=== PATIENT | male | born 1935 | race Caucasian/White ===

== ENCOUNTER 2021-06-08 16:06 | Emergency (ER) | payer MEDICARE ==
[2021-06-08 16:41] LABS: Hemoglobin 13.7 g/dL (14.0-18.0); Mean Corpuscular HGB CONC 31.6 g/dL (32.0-36.0); Mean Corpuscular Hemoglobin 30.8 pg (27.0-31.0); Mean Corpuscular Volume 97.4 fL (78.0-98.0); Mean Platelet Volume 11.3 fL (7.4-10.4); Platelet Count 180 thou/uL (130-400); Red Blood Cell (RBC) Count 4.46 mill/uL (4.70-6.10); White Blood Cell (WBC) Count 7.2 thou/uL (4.8-10.8)
[2021-06-08 16:43] LABS: Prothrombin Time 12.7 sec (12.0-14.7)
[2021-06-08 16:51] LABS: ALT (SGPT) 12 U/L (8-55); AST (SGOT) 14 U/L (5-34); Albumin 3.6 g/dL (3.4-4.8); Alkaline Phosphatase 57 U/L (40-110); Anion Gap 12 mmol/L (10-20); BUN (Urea Nitrogen) 33 mg/dL (8.4-25.7); Bilirubin, Total 0.3 mg/dL (0.2-1.2); Calc. Creatinine Clearance 0 mL/min (70-130); Calcium 9.2 mg/dL (7.8-10.44); Carbon Dioxide 25 mmol/L (23-31); Chloride 107 mmol/L (98-107); Globulin 3.2 g/dL (2.4-3.5); Glucose 138 mg/dL (83-110); Potassium 4.4 mmol/L (3.5-5.1); Protein, Total 6.8 g/dL (5.8-8.1); Sodium 140 mmol/L (136-145)
[2021-06-08 16:56] LABS: Lymphocytes 23 % (21-51); MDiff Complete? YES; Monocytes 16 % (0-10); Neutrophil 59 % (42-75); Platelet Morphology Comment Appears Adequate; Reactive Lymphocytes 2 % (0-10)
[2021-06-08 18:40] LABS: Bilirubin Negative (Negative); Blood, Urine Negative (Negative); Clarity Clear (Clear); Glucose, Urine (Dipstick) Negative (Negative); Ketone, Urine Negative (Negative); Leukocyte Negative (Negative); Nitrite Negative (Negative); Protein, Urine (Dipstick) Negative (Neg-Trace); Urobilinogen 0.2 mg/dL (Less than 2); pH, Urine 5.5 (5.0-9.0)
[2021-06-08 18:42] LABS: Specific Gravity, Urine 1.028 (1.002-1.036)
[2021-06-08 20:46] LABS: SARS-CoV-2 NAA Rapid Test Not Detected (NotDetected)
== END 2021-06-08 21:25 | disposition short-term general hospital (02) ==
LOC: NAV ERS 16:06
DX: G45.9 Transient cerebral ischemic attack, unspecified (principal); M10.9 Gout, unspecified; E78.00 Pure hypercholesterolemia, unspecified; M19.90 Unspecified osteoarthritis, unspecified site; E11.9 Type 2 diabetes mellitus without complications; Z79.84 Long term (current) use of oral hypoglycemic drugs; Z79.899 Other long term (current) drug therapy
CPT/HCPCS: 70450; 71045; 80053; 81003; 85025; 85610; 85730; 93005; U0002

== ENCOUNTER 2022-11-15 09:27 | Emergency (ER) | payer OTHER, MEDICARE ==
[2022-11-15 10:14] LABS: Bilirubin Negative (Negative); Blood, Urine Small (Negative); Clarity Clear (Clear); Glucose, Urine (Dipstick) Negative (Negative); Ketone, Urine Negative (Negative); Leukocyte Large (Negative); Nitrite Negative (Negative); Protein, Urine (Dipstick) Negative (Neg-Trace); Urobilinogen 0.2 mg/dL (Less than 2); pH, Urine 6.5 (5.0-9.0)
[2022-11-15 10:18] LABS: Bacteria/HPF 2+ HPF (None Seen); Squamous Epithelial 0-3 HPF (0-3)
== END 2022-11-15 10:45 | disposition home or self-care (01) ==
LOC: NAV ERS 09:27
DX: S70.02XA Contusion of left hip, initial encounter (principal); S30.0XXA Contusion of lower back and pelvis, initial encounter; N39.0 Urinary tract infection, site not specified; I10 Essential (primary) hypertension; M10.9 Gout, unspecified; E78.00 Pure hypercholesterolemia, unspecified; M19.90 Unspecified osteoarthritis, unspecified site; W18.09XA Striking against other object with subsequent fall, initial encounter; Y93.E1 Activity, personal bathing and showering; Y92.002 Bathroom of unspecified non-institutional (private) residence as the place of occurrence of the external cause; Z79.899 Other long term (current) drug therapy
CPT/HCPCS: 72170; 81003; 81015

== ENCOUNTER 2023-05-24 14:43 | Inpatient (IN) | payer MEDICARE ==
[2023-05-24 15:21] LABS: #Basophils 0.2 thou/uL (0.0-0.2); #Lymphocytes 0.9 thou/uL (1.20-3.40); #Monocytes 1.4 thou/uL (0.11-0.59); #Neutrophils 4.6 thou/uL (1.40-6.50); %Basophils 2.9 % (0.0-1.0); %Eosinophils 0.3 % (0.0-10.0); %Monocytes 20.3 % (0.0-10.0); %Neutrophils 64.6 % (42.0-75.0); Hematocrit 41.5 % (42.0-52.0); Hemoglobin 13.6 g/dL (14.0-18.0); Mean Corpuscular HGB CONC 32.7 g/dL (32.0-36.0); Mean Corpuscular Volume 91.7 fl (78.0-98.0); Mean Platelet Volume 9.6 fL (7.4-10.4); Platelet Count 161 10x3/uL (130-400); Red Blood Cell (RBC) Count 4.53 mill/uL (4.70-6.10); White Blood Cell (WBC) Count 7.1 10x3/uL (4.8-10.8)
[2023-05-24 15:38] LABS: ALT (SGPT) 12 U/L (8-55); AST (SGOT) 20 U/L (5-34); Albumin 3.5 g/dL (3.4-4.8); Alkaline Phosphatase 61 U/L (40-110); Anion Gap 16 mmol/L (10-20); BUN (Urea Nitrogen) 28 mg/dL (8.4-25.7); Bilirubin, Total 0.4 mg/dL (0.2-1.2); Calc. Creatinine Clearance 0 mL/min (70-130); Calcium 9.4 mg/dL (7.8-10.44); Carbon Dioxide 20 mmol/L (23-31); Chloride 103 mmol/L (98-107); Estimated GFR 71; Globulin 3.8 g/dL (2.4-3.5); Glucose 106 mg/dL (83-110); Potassium 5.2 mmol/L (3.5-5.1); Protein, Total 7.3 g/dL (5.8-8.1); Sodium 134 mmol/L (136-145)
[2023-05-24 17:00] LABS: Bilirubin Negative (Negative); Blood, Urine Trace (Negative); Clarity Clear (Clear); Glucose, Urine (Dipstick) Negative (Negative); Ketone, Urine Trace mg/dL (Negative); Leukocyte Negative (Negative); Nitrite Negative (Negative); Protein, Urine (Dipstick) Negative (Neg-Trace); Urobilinogen 0.2 mg/dL (Less than 2); pH, Urine 6.5 (5.0-9.0)
[2023-05-24 17:01] LABS: CAUTI Indications for Culture Alt mental st,lethar
[2023-05-24 17:04] LABS: SARS-CoV-2 NAA Rapid Test DETECTED (NotDetected)
[2023-05-24 17:05] LABS: RBC/HPF 0-3 HPF (0-3)
[2023-05-24 17:06] LABS: Bacteria/HPF None Seen HPF (None Seen); Squamous Epithelial None Seen HPF (0-3); WBC/HPF None Seen HPF (0-3)
[2023-05-24 17:07] LABS: Urine Culture Reflex No No
[2023-05-24] MEDS ORDERED: Ondansetron ODT 4 MG TAB SL PRN (17:45)
[2023-05-24] MEDS ORDERED: Acetaminophen 325 MG TAB PO PRN (17:45)
[2023-05-24] MEDS ORDERED: Senokot S 8.6-50 MG TAB PO PRN (17:45)
[2023-05-24] MEDS ORDERED: Lactated Ringer's 1,000 ML IV SCH (18:15)
[2023-05-24] MEDS ORDERED: Benzonatate 100 MG CAP PO PRN (19:51)
[2023-05-24] MEDS ORDERED: Lactated Ringer's 1,000 ML ONE (19:52)
[2023-05-24] MEDS ORDERED: NIRMATRELVIR 150 MG/RITONAVIR 100 MG PO SCH ×2 (20:30→21:00)
[2023-05-24] MEDS ORDERED: Simvastatin 10 MG TAB PO SCH (21:00)
[2023-05-24] MEDS: Famotidine 20 MG TAB PO SCH (21:00)
[2023-05-24] MEDS: NIRMATRELVIR 150 MG/RITONAVIR 100 MG PO SCH (21:01)
[2023-05-24 21:30] LABS: Anion Gap 13 mmol/L (10-20); BUN (Urea Nitrogen) 24 mg/dL (8.4-25.7); Calc. Creatinine Clearance 0 mL/min (70-130); Carbon Dioxide 25 mmol/L (23-31); Chloride 105 mmol/L (98-107); Estimated GFR 69; Glucose 136 mg/dL (83-110); Potassium 4.1 mmol/L (3.5-5.1); Sodium 139 mmol/L (136-145)
[2023-05-25 00:10] VITALS: BMI 22.6
[2023-05-25 06:07] LABS: #Basophils 0.1 thou/uL (0.0-0.2); #Lymphocytes 0.8 thou/uL (1.20-3.40); #Monocytes 1.5 thou/uL (0.11-0.59); #Neutrophils 2.6 thou/uL (1.40-6.50); %Eosinophils 0.1 % (0.0-10.0); %Lymphocytes 16.3 % (21.0-51.0); %Monocytes 29.8 % (0.0-10.0); %Neutrophils 51.8 % (42.0-75.0); Hematocrit 38.3 % (42.0-52.0); Hemoglobin 12.3 g/dL (14.0-18.0); Mean Corpuscular Hemoglobin 29.5 pg (27.0-31.0); Mean Platelet Volume 9.1 fL (7.4-10.4); Platelet Count 133 10x3/uL (130-400); RBC Distribution Width 13.6 % (11.5-14.5); Red Blood Cell (RBC) Count 4.17 mill/uL (4.70-6.10)
[2023-05-25 06:14] LABS: ALT (SGPT) 10 U/L (8-55); AST (SGOT) 16 U/L (5-34); Albumin 3.1 g/dL (3.4-4.8); Alkaline Phosphatase 51 U/L (40-110); Anion Gap 12 mmol/L (10-20); BUN (Urea Nitrogen) 19 mg/dL (8.4-25.7); Bilirubin, Total 0.5 mg/dL (0.2-1.2); Calc. Creatinine Clearance 61 mL/min (70-130); Calcium 8.6 mg/dL (7.8-10.44); Carbon Dioxide 22 mmol/L (23-31); Chloride 105 mmol/L (98-107); Estimated GFR 83; Globulin 3.1 g/dL (2.4-3.5); Glucose 105 mg/dL (83-110); Potassium 4.2 mmol/L (3.5-5.1); Protein, Total 6.2 g/dL (5.8-8.1); Sodium 135 mmol/L (136-145)
[2023-05-25] MEDS: Allopurinol 100 MG TAB PO SCH (09:29)
[2023-05-25] MEDS: Famotidine 20 MG TAB PO SCH ×2 (09:30→20:42)
[2023-05-25] MEDS: Lisinopril 10 MG TAB PO SCH (09:30)
[2023-05-25] MEDS: Aspirin 81 mg Enteric Coated Tablet PO SCH (09:30)
[2023-05-25] MEDS: NIRMATRELVIR 150 MG/RITONAVIR 100 MG PO SCH ×2 (09:31→20:42)
[2023-05-26] MEDS: Famotidine 20 MG TAB PO SCH ×2 (08:27→21:24)
[2023-05-26] MEDS: Lisinopril 10 MG TAB PO SCH (08:27)
[2023-05-26] MEDS: Allopurinol 100 MG TAB PO SCH (08:27)
[2023-05-26] MEDS: Aspirin 81 mg Enteric Coated Tablet PO SCH (08:28)
[2023-05-26] MEDS: NIRMATRELVIR 150 MG/RITONAVIR 100 MG PO SCH ×2 (08:37→21:26)
[2023-05-26] MEDS ORDERED: Sodium Chloride 0.9% 1,000 ML IV SCH (12:15)
[2023-05-26] MEDS ORDERED: Loperamide HCl 2 MG CAP PO PRN (16:43)
[2023-05-27 06:12] LABS: %Lymphocytes 32.2 % (21.0-51.0); %Neutrophils 30.3 % (42.0-75.0); Hematocrit 39.8 % (42.0-52.0); Manual Diff?? NO; Mean Corpuscular HGB CONC 32.8 g/dL (32.0-36.0); Mean Corpuscular Hemoglobin 30.1 pg (27.0-31.0); Mean Corpuscular Volume 91.8 fl (78.0-98.0); Mean Platelet Volume 9.9 fL (7.4-10.4); Platelet Count 116 10x3/uL (130-400); RBC Distribution Width 13.4 % (11.5-14.5); Red Blood Cell (RBC) Count 4.34 mill/uL (4.70-6.10); White Blood Cell (WBC) Count 3.8 10x3/uL (4.8-10.8)
[2023-05-27 06:13] LABS: #Basophils 0.1 thou/uL (0.0-0.2); #Lymphocytes 1.2 thou/uL (1.20-3.40); #Monocytes 1.3 thou/uL (0.11-0.59); #Neutrophils 1.2 thou/uL (1.40-6.50); %Basophils 2.3 % (0.0-1.0); %Eosinophils 0.4 % (0.0-10.0); %Monocytes 34.9 % (0.0-10.0)
[2023-05-27 06:24] LABS: Anion Gap 14 mmol/L (10-20); BUN (Urea Nitrogen) 19 mg/dL (8.4-25.7); Calc. Creatinine Clearance 57 mL/min (70-130); Calcium 8.8 mg/dL (7.8-10.44); Carbon Dioxide 21 mmol/L (23-31); Chloride 107 mmol/L (98-107); Estimated GFR 80; Glucose 90 mg/dL (83-110); Potassium 4.1 mmol/L (3.5-5.1); Sodium 138 mmol/L (136-145)
[2023-05-27] MEDS: Allopurinol 100 MG TAB PO SCH (08:17)
[2023-05-27] MEDS: Famotidine 20 MG TAB PO SCH (08:17)
[2023-05-27] MEDS: Aspirin 81 mg Enteric Coated Tablet PO SCH (08:18)
[2023-05-27] MEDS ORDERED: Lisinopril 10 MG TAB PO SCH (09:00)
[2023-05-27] MEDS: NIRMATRELVIR 150 MG/RITONAVIR 100 MG PO SCH (09:53)
[2023-05-27 11:16] VITALS: TEMP 96.9
[2023-05-27 14:37] VITALS: BP 138/65
== END 2023-05-27 12:30 | disposition swing bed (61) | DRG 177 ==
LOC: NAV ERS 14:43 → INTOOBSV 19:22 → NAV ACUTE 19:22 → OBSVTOIN 19:22
PROVIDERS: ADMIT Family Medicine; ATTEND Family Medicine
DX: U07.1 COVID-19 (principal); G93.41 Metabolic encephalopathy; J96.01 Acute respiratory failure with hypoxia; E86.0 Dehydration; M10.9 Gout, unspecified; I10 Essential (primary) hypertension; M19.90 Unspecified osteoarthritis, unspecified site; Z79.82 Long term (current) use of aspirin; Z79.899 Other long term (current) drug therapy; E78.5 Hyperlipidemia, unspecified; Z85.46 Personal history of malignant neoplasm of prostate; N40.0 Benign prostatic hyperplasia without lower urinary tract symptoms; Z96.651 Presence of right artificial knee joint; Z98.890 Other specified postprocedural states; E87.5 Hyperkalemia
CPT/HCPCS: 36415; 70450; 71045; 80048; 80053; 81001; 83605; 84145; 85025; 86140; 93005; J1650; J7050; J7120

== ENCOUNTER 2023-05-27 07:37 | Inpatient (IN) | payer MEDICARE ==
[2023-05-27] MEDS ORDERED: Loperamide HCl 2 MG CAP PO PRN (10:39)
[2023-05-27] MEDS ORDERED: Bisacodyl 5 MG TAB PO PRN (10:39)
[2023-05-27] MEDS ORDERED: Benzonatate 100 MG CAP PO PRN (10:41)
[2023-05-27] MEDS: Famotidine 20 MG TAB PO SCH (21:26)
[2023-05-27] MEDS: NIRMATRELVIR 150 MG/RITONAVIR 100 MG PO SCH (23:26)
[2023-05-28 06:11] LABS: Hematocrit 40.6 % (42.0-52.0); Hemoglobin 13.2 g/dL (14.0-18.0); Mean Corpuscular HGB CONC 32.6 g/dL (32.0-36.0); Mean Corpuscular Hemoglobin 29.7 pg (27.0-31.0); Mean Corpuscular Volume 91.1 fl (78.0-98.0); Red Blood Cell (RBC) Count 4.45 mill/uL (4.70-6.10); White Blood Cell (WBC) Count 3.6 10x3/uL (4.8-10.8)
[2023-05-28 06:12] LABS: #Basophils 0.1 thou/uL (0.0-0.2); #Lymphocytes 1.4 thou/uL (1.20-3.40); #Neutrophils 1.2 thou/uL (1.40-6.50); %Basophils 1.8 % (0.0-1.0); %Eosinophils 0.4 % (0.0-10.0); %Lymphocytes 37.2 % (21.0-51.0); %Monocytes 27.6 % (0.0-10.0); Mean Platelet Volume 8.6 fL (7.4-10.4); Platelet Count 123 10x3/uL (130-400); RBC Distribution Width 13.3 % (11.5-14.5)
[2023-05-28 06:25] LABS: ALT (SGPT) 16 U/L (8-55); AST (SGOT) 23 U/L (5-34); Albumin 2.8 g/dL (3.4-4.8); Alkaline Phosphatase 50 U/L (40-110); Anion Gap 16 mmol/L (10-20); BUN (Urea Nitrogen) 22 mg/dL (8.4-25.7); Bilirubin, Total 0.5 mg/dL (0.2-1.2); Calc. Creatinine Clearance 50 mL/min (70-130); Calcium 8.8 mg/dL (7.8-10.44); Carbon Dioxide 16 mmol/L (23-31); Chloride 110 mmol/L (98-107); Estimated GFR 69; Globulin 3.5 g/dL (2.4-3.5); Glucose 92 mg/dL (83-110); Potassium 4.6 mmol/L (3.5-5.1); Protein, Total 6.3 g/dL (5.8-8.1); Sodium 137 mmol/L (136-145)
[2023-05-28] MEDS: Lisinopril 10 MG TAB PO SCH (08:45)
[2023-05-28] MEDS: Famotidine 20 MG TAB PO SCH ×2 (08:45→20:45)
[2023-05-28] MEDS: Aspirin 81 mg Enteric Coated Tablet PO SCH (08:45)
[2023-05-28] MEDS: Allopurinol 100 MG TAB PO SCH (08:45)
[2023-05-28] MEDS: NIRMATRELVIR 150 MG/RITONAVIR 100 MG PO SCH ×2 (08:46→20:45)
[2023-05-29] MEDS: Acetaminophen 325 MG TAB PO PRN ×2 (09:46→16:44)
[2023-05-29] MEDS: Famotidine 20 MG TAB PO SCH ×2 (09:47→21:23)
[2023-05-29] MEDS: Aspirin 81 mg Enteric Coated Tablet PO SCH (09:48)
[2023-05-29] MEDS: Lisinopril 10 MG TAB PO SCH (09:48)
[2023-05-29] MEDS: Allopurinol 100 MG TAB PO SCH (09:48)
[2023-05-29] MEDS: NIRMATRELVIR 150 MG/RITONAVIR 100 MG PO SCH ×3 (09:49→23:08)
[2023-05-30] MEDS ORDERED: Ibuprofen 400 MG TAB PO PRN (07:50)
[2023-05-30] MEDS: NIRMATRELVIR 150 MG/RITONAVIR 100 MG PO SCH (08:44)
[2023-05-30] MEDS: Allopurinol 100 MG TAB PO SCH (08:45)
[2023-05-30] MEDS: Lisinopril 10 MG TAB PO SCH (08:46)
[2023-05-30] MEDS: Famotidine 20 MG TAB PO SCH ×2 (08:46→21:35)
[2023-05-30] MEDS: Aspirin 81 mg Enteric Coated Tablet PO SCH (08:46)
[2023-05-30] MEDS: Acetaminophen 325 MG TAB PO PRN (08:51)
[2023-05-30] MEDS: Ibuprofen 200 MG TAB PO PRN (16:25)
[2023-05-31] MEDS: Aspirin 81 mg Enteric Coated Tablet PO SCH (10:10)
[2023-05-31] MEDS: Allopurinol 100 MG TAB PO SCH (10:10)
[2023-05-31] MEDS: Famotidine 20 MG TAB PO SCH ×2 (10:10→21:15)
[2023-05-31] MEDS: Lisinopril 10 MG TAB PO SCH (10:11)
[2023-05-31] MEDS: Ibuprofen 200 MG TAB PO PRN (11:22)
[2023-06-01] MEDS: Aspirin 81 mg Enteric Coated Tablet PO SCH (09:04)
[2023-06-01] MEDS: Acetaminophen 325 MG TAB PO PRN (09:04)
[2023-06-01] MEDS: Famotidine 20 MG TAB PO SCH ×2 (09:04→21:17)
[2023-06-01] MEDS: Allopurinol 100 MG TAB PO SCH (09:04)
[2023-06-01] MEDS: Lisinopril 10 MG TAB PO SCH (09:05)
[2023-06-02] MEDS: Lisinopril 10 MG TAB PO SCH (08:07)
[2023-06-02] MEDS: Famotidine 20 MG TAB PO SCH ×2 (08:07→21:03)
[2023-06-02] MEDS: Aspirin 81 mg Enteric Coated Tablet PO SCH (08:08)
[2023-06-02] MEDS: Allopurinol 100 MG TAB PO SCH (08:08)
[2023-06-02] MEDS: Ibuprofen 200 MG TAB PO PRN (08:35)
[2023-06-02] MEDS: Tamsulosin HCl 0.4 MG CAP PO SCH (21:15)
[2023-06-03] MEDS: Famotidine 20 MG TAB PO SCH ×2 (08:43→21:58)
[2023-06-03] MEDS: Aspirin 81 mg Enteric Coated Tablet PO SCH (08:43)
[2023-06-03] MEDS: Lisinopril 10 MG TAB PO SCH (08:43)
[2023-06-03] MEDS: Allopurinol 100 MG TAB PO SCH (08:43)
[2023-06-03] MEDS: Ibuprofen 200 MG TAB PO PRN (08:45)
[2023-06-03] MEDS: Dextrose 5 % And 0.9 % NaCl 1,000 ML IV SCH (15:34)
[2023-06-03] MEDS: Tamsulosin HCl 0.4 MG CAP PO SCH (21:58)
[2023-06-04] MEDS: Dextrose 5 % And 0.9 % NaCl 1,000 ML IV SCH (01:32)
[2023-06-04 06:26] LABS: Hematocrit 35.5 % (42.0-52.0); Hemoglobin 11.5 g/dL (14.0-18.0); Mean Corpuscular HGB CONC 32.5 g/dL (32.0-36.0); Mean Corpuscular Hemoglobin 29.9 pg (27.0-31.0); Red Blood Cell (RBC) Count 3.86 mill/uL (4.70-6.10); White Blood Cell (WBC) Count 8.7 10x3/uL (4.8-10.8)
[2023-06-04 06:27] LABS: #Neutrophils 5.6 thou/uL (1.40-6.50); %Basophils 0.6 % (0.0-1.0); %Eosinophils 0.1 % (0.0-10.0); %Monocytes 23.5 % (0.0-10.0); %Neutrophils 64.8 % (42.0-75.0); Mean Platelet Volume 9.3 fL (7.4-10.4); Platelet Count 204 10x3/uL (130-400)
[2023-06-04 06:39] LABS: BUN (Urea Nitrogen) 28 mg/dL (8.4-25.7); Calc. Creatinine Clearance 56 mL/min (70-130); Carbon Dioxide 20 mmol/L (23-31); Chloride 108 mmol/L (98-107); Estimated GFR 78; Glucose 137 mg/dL (83-110); Potassium 4.1 mmol/L (3.5-5.1); Sodium 138 mmol/L (136-145)
[2023-06-04 09:33] LABS: Anion Gap 11 mmol/L (10-20)
[2023-06-04] MEDS: Allopurinol 100 MG TAB PO SCH (10:39)
[2023-06-04] MEDS: Famotidine 20 MG TAB PO SCH ×2 (10:39→20:31)
[2023-06-04] MEDS: Aspirin 81 mg Enteric Coated Tablet PO SCH (10:39)
[2023-06-04] MEDS: Lisinopril 10 MG TAB PO SCH (10:40)
[2023-06-04] MEDS: Atorvastatin Calcium 20 MG TAB PO SCH (20:31)
[2023-06-04] MEDS: Tamsulosin HCl 0.4 MG CAP PO SCH (20:31)
[2023-06-05] MEDS: Lisinopril 10 MG TAB PO SCH (08:28)
[2023-06-05] MEDS: Aspirin 81 mg Enteric Coated Tablet PO SCH (08:28)
[2023-06-05] MEDS: Famotidine 20 MG TAB PO SCH ×2 (08:28→20:22)
[2023-06-05] MEDS: Allopurinol 100 MG TAB PO SCH (08:28)
[2023-06-05] MEDS: Acetaminophen 325 MG TAB PO PRN ×2 (10:11→18:17)
[2023-06-05] MEDS: Tamsulosin HCl 0.4 MG CAP PO SCH (20:22)
[2023-06-05] MEDS: Atorvastatin Calcium 20 MG TAB PO SCH (20:22)
[2023-06-06 06:12] LABS: #Basophils 0.1 thou/uL (0.0-0.2); #Lymphocytes 1.1 thou/uL (1.20-3.40); #Monocytes 1.4 thou/uL (0.11-0.59); %Basophils 0.8 % (0.0-1.0); %Eosinophils 0.1 % (0.0-10.0); %Lymphocytes 14.6 % (21.0-51.0); %Monocytes 17.9 % (0.0-10.0); %Neutrophils 66.6 % (42.0-75.0); Hematocrit 32.7 % (42.0-52.0); Hemoglobin 10.5 g/dL (14.0-18.0); Mean Corpuscular HGB CONC 32.2 g/dL (32.0-36.0); Mean Corpuscular Hemoglobin 29.5 pg (27.0-31.0); Mean Corpuscular Volume 91.6 fl (78.0-98.0); Mean Platelet Volume 8.4 fL (7.4-10.4); Platelet Count 223 10x3/uL (130-400); RBC Distribution Width 12.7 % (11.5-14.5); Red Blood Cell (RBC) Count 3.57 mill/uL (4.70-6.10); White Blood Cell (WBC) Count 7.5 10x3/uL (4.8-10.8)
[2023-06-06 06:27] LABS: Anion Gap 14 mmol/L (10-20); BUN (Urea Nitrogen) 35 mg/dL (8.4-25.7); Calc. Creatinine Clearance 61 mL/min (70-130); Calcium 9.1 mg/dL (7.8-10.44); Carbon Dioxide 21 mmol/L (23-31); Chloride 108 mmol/L (98-107); Estimated GFR 83; Glucose 105 mg/dL (83-110); Potassium 3.7 mmol/L (3.5-5.1); Sodium 139 mmol/L (136-145)
[2023-06-06] MEDS: Ibuprofen 200 MG TAB PO PRN ×2 (07:44→17:21)
[2023-06-06] MEDS: Allopurinol 100 MG TAB PO SCH (07:47)
[2023-06-06] MEDS: Aspirin 81 mg Enteric Coated Tablet PO SCH (07:47)
[2023-06-06] MEDS: Famotidine 20 MG TAB PO SCH ×2 (07:47→20:29)
[2023-06-06] MEDS: Lisinopril 10 MG TAB PO SCH (08:15)
[2023-06-06] MEDS ORDERED: Lidocaine 4% Patch TD SCH ×2 (11:00)
[2023-06-06] MEDS: Tamsulosin HCl 0.4 MG CAP PO SCH (20:29)
[2023-06-06] MEDS: Acetaminophen 325 MG TAB PO PRN (20:30)
[2023-06-06] MEDS: Atorvastatin Calcium 20 MG TAB PO SCH (20:30)
[2023-06-06] MEDS ORDERED: LIDOCAINE Patch Removal TOP SCH (23:00)
[2023-06-07] MEDS: Ibuprofen 200 MG TAB PO PRN ×2 (07:47→17:53)
[2023-06-07] MEDS: Lisinopril 10 MG TAB PO SCH (07:48)
[2023-06-07] MEDS: Aspirin 81 mg Enteric Coated Tablet PO SCH (07:48)
[2023-06-07] MEDS: Allopurinol 100 MG TAB PO SCH (07:48)
[2023-06-07] MEDS: Famotidine 20 MG TAB PO SCH ×2 (07:49→20:55)
[2023-06-07] MEDS: Lidocaine 4% Patch TD SCH ×2 (07:49→07:50)
[2023-06-07] MEDS ORDERED: Lidocaine 5% Patch TD SCH (09:00)
[2023-06-07] MEDS: Acetaminophen 325 MG TAB PO PRN (20:54)
[2023-06-07] MEDS: Atorvastatin Calcium 20 MG TAB PO SCH (20:55)
[2023-06-07] MEDS: LIDOCAINE Patch Removal TOP SCH (20:55)
[2023-06-07] MEDS: Tamsulosin HCl 0.4 MG CAP PO SCH (20:55)
[2023-06-08] MEDS: Lidocaine 4% Patch TD SCH ×2 (08:06)
[2023-06-08] MEDS: Ibuprofen 200 MG TAB PO PRN ×2 (08:07→21:00)
[2023-06-08] MEDS: Allopurinol 100 MG TAB PO SCH (08:09)
[2023-06-08] MEDS: Aspirin 81 mg Enteric Coated Tablet PO SCH (08:09)
[2023-06-08] MEDS: Lisinopril 10 MG TAB PO SCH (08:10)
[2023-06-08] MEDS: Famotidine 20 MG TAB PO SCH ×2 (08:10→21:00)
[2023-06-08] MEDS: Atorvastatin Calcium 20 MG TAB PO SCH (21:00)
[2023-06-08] MEDS: Tamsulosin HCl 0.4 MG CAP PO SCH (21:00)
[2023-06-08] MEDS: LIDOCAINE Patch Removal TOP SCH (21:02)
[2023-06-09] MEDS: Allopurinol 100 MG TAB PO SCH (09:01)
[2023-06-09] MEDS: Acetaminophen 325 MG TAB PO PRN (09:02)
[2023-06-09] MEDS: Lisinopril 10 MG TAB PO SCH (09:03)
[2023-06-09] MEDS: Famotidine 20 MG TAB PO SCH ×2 (09:03→20:55)
[2023-06-09] MEDS: Aspirin 81 mg Enteric Coated Tablet PO SCH (09:03)
[2023-06-09] MEDS: Lidocaine 4% Patch TD SCH ×2 (09:04)
[2023-06-09] MEDS: Atorvastatin Calcium 20 MG TAB PO SCH (20:55)
[2023-06-09] MEDS: LIDOCAINE Patch Removal TOP SCH (20:56)
[2023-06-09] MEDS: Tamsulosin HCl 0.4 MG CAP PO SCH (20:56)
[2023-06-10 06:01] LABS: White Blood Cell (WBC) Count 4.6 10x3/uL (4.8-10.8)
[2023-06-10 06:02] LABS: #Lymphocytes 1.1 thou/uL (1.20-3.40); #Monocytes 0.6 thou/uL (0.11-0.59); #Neutrophils 2.8 thou/uL (1.40-6.50); %Basophils 0.4 % (0.0-1.0); %Eosinophils 0.3 % (0.0-10.0); %Lymphocytes 23.5 % (21.0-51.0); %Monocytes 14.1 % (0.0-10.0); %Neutrophils 61.7 % (42.0-75.0); Hematocrit 33.4 % (42.0-52.0); Manual Diff?? NO; Mean Corpuscular HGB CONC 32.9 g/dL (32.0-36.0); Mean Corpuscular Hemoglobin 29.7 pg (27.0-31.0); Mean Corpuscular Volume 90.5 fl (78.0-98.0); Mean Platelet Volume 7.7 fL (7.4-10.4); Platelet Count 243 10x3/uL (130-400); RBC Distribution Width 12.6 % (11.5-14.5)
[2023-06-10 07:00] LABS: Anion Gap 12 mmol/L (10-20); BUN (Urea Nitrogen) 28 mg/dL (8.4-25.7); Calc. Creatinine Clearance 61 mL/min (70-130); Calcium 8.8 mg/dL (7.8-10.44); Carbon Dioxide 22 mmol/L (23-31); Chloride 111 mmol/L (98-107); Estimated GFR 84; Glucose 98 mg/dL (83-110); Potassium 3.9 mmol/L (3.5-5.1); Sodium 141 mmol/L (136-145)
[2023-06-10] MEDS: Allopurinol 100 MG TAB PO SCH (08:27)
[2023-06-10] MEDS: Lisinopril 10 MG TAB PO SCH (08:27)
[2023-06-10] MEDS: Lidocaine 4% Patch TD SCH ×2 (08:27)
[2023-06-10] MEDS: Aspirin 81 mg Enteric Coated Tablet PO SCH (08:27)
[2023-06-10] MEDS: Famotidine 20 MG TAB PO SCH ×2 (08:27→21:15)
[2023-06-10] MEDS: Atorvastatin Calcium 20 MG TAB PO SCH (21:15)
[2023-06-10] MEDS: Tamsulosin HCl 0.4 MG CAP PO SCH (21:16)
[2023-06-10] MEDS: LIDOCAINE Patch Removal TOP SCH (21:16)
[2023-06-11 06:13] LABS: Hematocrit 32.9 % (42.0-52.0); Hemoglobin 10.7 g/dL (14.0-18.0); Platelet Count 243 10x3/uL (130-400)
[2023-06-11] MEDS: Lidocaine 4% Patch TD SCH ×2 (09:26)
[2023-06-11] MEDS: Lisinopril 10 MG TAB PO SCH (09:27)
[2023-06-11] MEDS: Aspirin 81 mg Enteric Coated Tablet PO SCH (09:27)
[2023-06-11] MEDS: Acetaminophen 325 MG TAB PO PRN (09:28)
[2023-06-11] MEDS: Allopurinol 100 MG TAB PO SCH (09:29)
[2023-06-11] MEDS: Famotidine 20 MG TAB PO SCH ×2 (09:30→20:20)
[2023-06-11] MEDS: Atorvastatin Calcium 20 MG TAB PO SCH (20:20)
[2023-06-11] MEDS: Tamsulosin HCl 0.4 MG CAP PO SCH (20:20)
[2023-06-11] MEDS: LIDOCAINE Patch Removal TOP SCH (20:25)
[2023-06-12] MEDS: Famotidine 20 MG TAB PO SCH ×2 (08:36→20:38)
[2023-06-12] MEDS: Aspirin 81 mg Enteric Coated Tablet PO SCH (08:36)
[2023-06-12] MEDS: Allopurinol 100 MG TAB PO SCH (08:36)
[2023-06-12] MEDS: Lisinopril 10 MG TAB PO SCH (08:36)
[2023-06-12] MEDS: Lidocaine 4% Patch TD SCH ×2 (10:56→10:57)
[2023-06-12] MEDS: LIDOCAINE Patch Removal TOP SCH (20:37)
[2023-06-12] MEDS: Atorvastatin Calcium 20 MG TAB PO SCH (20:38)
[2023-06-12] MEDS: Tamsulosin HCl 0.4 MG CAP PO SCH (20:38)
[2023-06-13] MEDS: Lidocaine 4% Patch TD SCH ×2 (07:50)
[2023-06-13] MEDS: Famotidine 20 MG TAB PO SCH ×2 (07:51→21:32)
[2023-06-13] MEDS: Ibuprofen 200 MG TAB PO PRN (07:51)
[2023-06-13] MEDS: Lisinopril 10 MG TAB PO SCH (07:52)
[2023-06-13] MEDS: Aspirin 81 mg Enteric Coated Tablet PO SCH (07:53)
[2023-06-13] MEDS: Allopurinol 100 MG TAB PO SCH (07:53)
[2023-06-13] MEDS: LIDOCAINE Patch Removal TOP SCH (20:30)
[2023-06-13] MEDS: Atorvastatin Calcium 20 MG TAB PO SCH (21:32)
[2023-06-13] MEDS: Tamsulosin HCl 0.4 MG CAP PO SCH (21:32)
[2023-06-14] MEDS: Lisinopril 10 MG TAB PO SCH (08:38)
[2023-06-14] MEDS: Aspirin 81 mg Enteric Coated Tablet PO SCH (08:38)
[2023-06-14] MEDS: Senokot S 8.6-50 MG TAB PO PRN (08:38)
[2023-06-14] MEDS: Lidocaine 4% Patch TD SCH ×2 (08:38)
[2023-06-14] MEDS: Famotidine 20 MG TAB PO SCH ×2 (08:38→20:20)
[2023-06-14] MEDS: Allopurinol 100 MG TAB PO SCH (08:38)
[2023-06-14] MEDS: LIDOCAINE Patch Removal TOP SCH (20:12)
[2023-06-14] MEDS: Atorvastatin Calcium 20 MG TAB PO SCH (20:19)
[2023-06-14] MEDS: Tamsulosin HCl 0.4 MG CAP PO SCH (20:20)
[2023-06-15] MEDS: Lidocaine 4% Patch TD SCH ×2 (08:00)
[2023-06-15] MEDS: Lisinopril 10 MG TAB PO SCH (08:01)
[2023-06-15] MEDS: Allopurinol 100 MG TAB PO SCH (08:01)
[2023-06-15] MEDS: Aspirin 81 mg Enteric Coated Tablet PO SCH (08:01)
[2023-06-15] MEDS: Famotidine 20 MG TAB PO SCH ×2 (08:01→22:02)
[2023-06-15] MEDS: LIDOCAINE Patch Removal TOP SCH (22:01)
[2023-06-15] MEDS: Tamsulosin HCl 0.4 MG CAP PO SCH (22:02)
[2023-06-15] MEDS: Atorvastatin Calcium 20 MG TAB PO SCH (22:03)
[2023-06-16] MEDS: Lidocaine 4% Patch TD SCH ×2 (09:33)
[2023-06-16] MEDS: Lisinopril 10 MG TAB PO SCH (09:35)
[2023-06-16] MEDS: Aspirin 81 mg Enteric Coated Tablet PO SCH (09:35)
[2023-06-16] MEDS: Allopurinol 100 MG TAB PO SCH (09:35)
[2023-06-16] MEDS: Famotidine 20 MG TAB PO SCH ×2 (09:36→21:41)
[2023-06-16] MEDS: Ibuprofen 200 MG TAB PO PRN (18:15)
[2023-06-16] MEDS: Atorvastatin Calcium 20 MG TAB PO SCH (21:41)
[2023-06-16] MEDS: Tamsulosin HCl 0.4 MG CAP PO SCH (21:41)
[2023-06-16] MEDS: LIDOCAINE Patch Removal TOP SCH (21:46)
[2023-06-17 06:04] LABS: Hemoglobin 11.2 g/dL (14.0-18.0); Red Blood Cell (RBC) Count 4.08 mill/uL (4.70-6.10)
[2023-06-17 06:05] LABS: #Basophils 0.1 thou/uL (0.0-0.2); #Lymphocytes 1.2 thou/uL (1.20-3.40); #Monocytes 1.8 thou/uL (0.11-0.59); #Neutrophils 4.9 thou/uL (1.40-6.50); %Basophils 0.8 % (0.0-1.0); %Eosinophils 0.5 % (0.0-10.0); %Lymphocytes 15.2 % (21.0-51.0); %Monocytes 22.4 % (0.0-10.0); %Neutrophils 61.6 % (42.0-75.0); Hematocrit 37.5 % (42.0-52.0); Mean Corpuscular Hemoglobin 27.5 pg (27.0-31.0); Mean Corpuscular Volume 91.9 fl (78.0-98.0); Mean Platelet Volume 8.1 fL (7.4-10.4); Platelet Count 206 10x3/uL (130-400); RBC Distribution Width 13.3 % (11.5-14.5)
[2023-06-17 06:14] LABS: BUN (Urea Nitrogen) 23 mg/dL (8.4-25.7); Calc. Creatinine Clearance 62 mL/min (70-130); Calcium 8.9 mg/dL (7.6-10.4); Carbon Dioxide 23 mmol/L (23-31); Chloride 106 mmol/L (98-107); Estimated GFR 84; Glucose 118 mg/dL (83-110); Potassium 4.1 mmol/L (3.5-5.1); Sodium 136 mmol/L (136-145)
[2023-06-17] MEDS: Ondansetron ODT 4 MG TAB SL PRN (07:52)
[2023-06-17 08:56] LABS: Anion Gap 11 mmol/L (10-20)
[2023-06-17] MEDS ORDERED: Lidocaine 4% Patch TD SCH ×2 (10:45)
[2023-06-17] MEDS ORDERED: Sodium Chloride 0.9% 1,000 ML IV SCH (11:00)
[2023-06-17] MEDS: Aspirin 81 mg Enteric Coated Tablet PO SCH (11:27)
[2023-06-17] MEDS: Allopurinol 100 MG TAB PO SCH (11:27)
[2023-06-17] MEDS: Famotidine 20 MG TAB PO SCH ×2 (11:28→21:12)
[2023-06-17] MEDS: Lisinopril 10 MG TAB PO SCH (11:30)
[2023-06-17] MEDS: Acetaminophen 325 MG TAB PO PRN (11:31)
[2023-06-17] MEDS: Lidocaine 4% Patch TD SCH ×2 (11:34)
[2023-06-17 19:53] LABS: Bilirubin Negative (Negative); Blood, Urine Trace (Negative); Clarity Clear (Clear); Glucose, Urine (Dipstick) Negative (Negative); Ketone, Urine Negative (Negative); Leukocyte Negative (Negative); Nitrite Negative (Negative); Protein, Urine (Dipstick) Trace mg/dL (Neg-Trace); Urobilinogen 0.2 mg/dL (Less than 2); pH, Urine 5.5 (5.0-9.0)
[2023-06-17 20:01] LABS: RBC/HPF 0-3 HPF (0-3); Specific Gravity, Urine 1.026 (1.002-1.036); Squamous Epithelial 0-3 HPF (0-3)
[2023-06-17] MEDS: LIDOCAINE Patch Removal TOP SCH (21:11)
[2023-06-17] MEDS: Atorvastatin Calcium 20 MG TAB PO SCH (21:12)
[2023-06-17] MEDS: Tamsulosin HCl 0.4 MG CAP PO SCH (21:12)
[2023-06-18] MEDS: Lidocaine 4% Patch TD SCH ×2 (09:28→09:29)
[2023-06-18] MEDS: Lisinopril 10 MG TAB PO SCH (09:32)
[2023-06-18] MEDS: Famotidine 20 MG TAB PO SCH ×2 (09:33→21:31)
[2023-06-18] MEDS: Allopurinol 100 MG TAB PO SCH (09:33)
[2023-06-18] MEDS: Aspirin 81 mg Enteric Coated Tablet PO SCH (09:34)
[2023-06-18] MEDS: LIDOCAINE Patch Removal TOP SCH (20:56)
[2023-06-18] MEDS: Atorvastatin Calcium 20 MG TAB PO SCH (21:31)
[2023-06-18] MEDS: Tamsulosin HCl 0.4 MG CAP PO SCH (21:31)
[2023-06-19] MEDS: Senokot S 8.6-50 MG TAB PO PRN ×2 (05:48→17:38)
[2023-06-19 06:13] LABS: #Basophils 0.1 thou/uL (0.0-0.2); #Lymphocytes 1.1 thou/uL (1.20-3.40); #Monocytes 1.8 thou/uL (0.11-0.59); #Neutrophils 5.8 thou/uL (1.40-6.50); %Basophils 0.7 % (0.0-1.0); %Eosinophils 0.1 % (0.0-10.0); %Lymphocytes 12.5 % (21.0-51.0); %Monocytes 20.3 % (0.0-10.0); %Neutrophils 66.5 % (42.0-75.0); Hematocrit 37.7 % (42.0-52.0); Hemoglobin 12.2 g/dL (14.0-18.0); Mean Corpuscular HGB CONC 32.3 g/dL (32.0-36.0); Mean Corpuscular Hemoglobin 29.4 pg (27.0-31.0); Mean Corpuscular Volume 90.9 fl (78.0-98.0); Mean Platelet Volume 8.9 fL (7.4-10.4); Platelet Count 202 10x3/uL (130-400); Red Blood Cell (RBC) Count 4.15 mill/uL (4.70-6.10); White Blood Cell (WBC) Count 8.8 10x3/uL (4.8-10.8)
[2023-06-19 06:16] LABS: Anion Gap 14 mmol/L (10-20); BUN (Urea Nitrogen) 21 mg/dL (8.4-25.7); Calc. Creatinine Clearance 62 mL/min (70-130); Calcium 9.3 mg/dL (7.8-10.44); Carbon Dioxide 21 mmol/L (23-31); Chloride 104 mmol/L (98-107); Estimated GFR 84; Glucose 114 mg/dL (83-110); Sodium 135 mmol/L (136-145)
[2023-06-19] MEDS: Ondansetron ODT 4 MG TAB SL PRN (06:29)
[2023-06-19] MEDS: Lidocaine 4% Patch TD SCH ×2 (09:08)
[2023-06-19] MEDS: Aspirin 81 mg Enteric Coated Tablet PO SCH (09:09)
[2023-06-19] MEDS: Allopurinol 100 MG TAB PO SCH (09:09)
[2023-06-19] MEDS: Lisinopril 10 MG TAB PO SCH (09:10)
[2023-06-19] MEDS: Famotidine 20 MG TAB PO SCH ×2 (09:10→20:23)
[2023-06-19] MEDS: Acetaminophen 325 MG TAB PO PRN (13:29)
[2023-06-19] MEDS: Ibuprofen 200 MG TAB PO PRN (20:23)
[2023-06-19] MEDS: LIDOCAINE Patch Removal TOP SCH (20:23)
[2023-06-19] MEDS: Atorvastatin Calcium 20 MG TAB PO SCH (20:23)
[2023-06-19] MEDS: Tamsulosin HCl 0.4 MG CAP PO SCH (20:26)
[2023-06-20] MEDS: Allopurinol 100 MG TAB PO SCH (07:41)
[2023-06-20] MEDS: Lisinopril 10 MG TAB PO SCH (07:41)
[2023-06-20] MEDS: Acetaminophen 325 MG TAB PO PRN (07:42)
[2023-06-20] MEDS: Aspirin 81 mg Enteric Coated Tablet PO SCH (07:42)
[2023-06-20] MEDS: Famotidine 20 MG TAB PO SCH ×2 (07:44→20:35)
[2023-06-20] MEDS: Lidocaine 4% Patch TD SCH ×2 (07:44)
[2023-06-20] MEDS: Tamsulosin HCl 0.4 MG CAP PO SCH (20:36)
[2023-06-20] MEDS: LIDOCAINE Patch Removal TOP SCH (20:36)
[2023-06-20] MEDS: Atorvastatin Calcium 20 MG TAB PO SCH (20:36)
[2023-06-20] MEDS: Ibuprofen 200 MG TAB PO PRN (20:36)
[2023-06-21] MEDS: Ibuprofen 200 MG TAB PO PRN ×2 (08:29→20:47)
[2023-06-21] MEDS: Lisinopril 10 MG TAB PO SCH (08:30)
[2023-06-21] MEDS: Famotidine 20 MG TAB PO SCH ×2 (08:30→20:42)
[2023-06-21] MEDS: Aspirin 81 mg Enteric Coated Tablet PO SCH (08:31)
[2023-06-21] MEDS: Allopurinol 100 MG TAB PO SCH (08:31)
[2023-06-21] MEDS: Lidocaine 4% Patch TD SCH ×2 (10:49→10:50)
[2023-06-21] MEDS: Atorvastatin Calcium 20 MG TAB PO SCH (20:42)
[2023-06-21] MEDS: LIDOCAINE Patch Removal TOP SCH (20:42)
[2023-06-21] MEDS: Tamsulosin HCl 0.4 MG CAP PO SCH (20:47)
[2023-06-22 04:21] VITALS: BMI 20.9
[2023-06-22] MEDS: Aspirin 81 mg Enteric Coated Tablet PO SCH (08:37)
[2023-06-22] MEDS: Lisinopril 10 MG TAB PO SCH (08:37)
[2023-06-22] MEDS: Famotidine 20 MG TAB PO SCH ×2 (08:37→20:49)
[2023-06-22] MEDS: Allopurinol 100 MG TAB PO SCH (08:37)
[2023-06-22] MEDS: Lidocaine 4% Patch TD SCH ×2 (08:38)
[2023-06-22] MEDS: Ibuprofen 200 MG TAB PO PRN ×2 (13:29→20:49)
[2023-06-22] MEDS: Atorvastatin Calcium 20 MG TAB PO SCH (20:49)
[2023-06-22] MEDS: Tamsulosin HCl 0.4 MG CAP PO SCH (20:49)
[2023-06-22] MEDS: LIDOCAINE Patch Removal TOP SCH (20:50)
[2023-06-23] MEDS: Aspirin 81 mg Enteric Coated Tablet PO SCH (08:11)
[2023-06-23] MEDS: Senokot S 8.6-50 MG TAB PO PRN (08:11)
[2023-06-23 08:12] VITALS: BP 113/70
[2023-06-23] MEDS: Lisinopril 10 MG TAB PO SCH (08:12)
[2023-06-23] MEDS: Famotidine 20 MG TAB PO SCH (08:12)
[2023-06-23] MEDS: Allopurinol 100 MG TAB PO SCH (08:12)
[2023-06-23] MEDS: Lidocaine 4% Patch TD SCH ×2 (08:16)
[2023-06-23 08:54] VITALS: TEMP 98
== END 2023-06-23 13:48 | DRG 177 ==
LOC: NAV ACUTE 13:33
PROVIDERS: ADMIT Family Medicine; ATTEND Family Medicine
PROC: XW0DXF5 Introduction of Other New Technology Therapeutic Substance into Mouth and Pharynx, External Approach, New Technology Group 5 (ICD-10-PCS; principal; 2023-05-27)
DX: U07.1 COVID-19 (principal); G93.41 Metabolic encephalopathy; R53.81 Other malaise; R53.1 Weakness; I10 Essential (primary) hypertension; E78.5 Hyperlipidemia, unspecified; C61 Malignant neoplasm of prostate; N40.0 Benign prostatic hyperplasia without lower urinary tract symptoms; M10.9 Gout, unspecified; F03.90 Unspecified dementia, unspecified severity, without behavioral disturbance, psychotic disturbance, mood disturbance, and anxiety; R13.10 Dysphagia, unspecified; M25.511 Pain in right shoulder; E86.0 Dehydration; Z96.651 Presence of right artificial knee joint; Z98.890 Other specified postprocedural states; Z79.82 Long term (current) use of aspirin; Z79.899 Other long term (current) drug therapy
CPT/HCPCS: 36415; 70450; 71045; 80048; 80053; 81001; 82565; 85014; 85018; 85025; 85049; 87086; J1650; J7042; J7050; Q0162